=== PATIENT | female | born 1965 | race Caucasian/White ===

== ENCOUNTER 2017-01-10 12:50 | Outpatient (CLI) | payer MEDICARE, MEDICAID ==
[~2017-01-10 12:50] MED LIST: ALBUTEROL2.5 MG/NEB IN; ALLERCLEAR10 MG PO; AMITRIPTYLINE 225 MG PO; AMOXICILLIN 50500 MG PO; ASPIRIN LITE C325 MG PO; ASPRIN OR; ATORVASTATIN CA40 MG PO; B-12500 MCG PO; CHANTIX0.5 MG PO; CIPRO 500MG TA500 MG PO; DELSYM30 MG/5 ML PO; EVISTA60 MG PO; FENOFIBRATE160 MG PO; FISH OIL500 MG PO; FLAGYL500 M1 PO; FUROSEMIDE40 MG PO; GABAPENTIN300 MG PO; GLUCOPHAGE1000 MG PO; IRON TABLETS325 MG PO; K-DUR 2020 MEQ PO; LEADER IRON TAB65 MG PO; LEVETIRACETAM750 MG PO; LORTAB 5/500 501 TAB PO; LORTAB 500 MG-71 TAB PO; LOSARTAN POTASS50 MG PO; METOCLOPRAMIDE10 M2 PO; MUCINEX DM1 TER PO; NIACIN500 M3 PO; PERCOCET 5/3251 EACH PO; PLAVIX75 MG PO; POTASSIUM GLUC595 M1 PO; PREDNISONE 20MG20 MG PO; PRILOSEC20 M1 PO; PROAIR HFA0.09 MG/AC IH; PROMETHAZINE HC25 M1 PO; RIZATRIPTAN BENZ5 MG PO; SIMVASTATIN20 MG PO; TRAMADOL 50MG T50 M1 PO; ZOFRAN ODT8 MG PO
== END 2017-01-10 13:05 | disposition home or self-care (01) ==
LOC: COP 12:50
DX: C85.90 Non-Hodgkin lymphoma, unspecified, unspecified site (principal); Z45.2 Encounter for adjustment and management of vascular access device
CPT/HCPCS: J1642

== ENCOUNTER 2017-06-20 10:30 | Outpatient (CLI) | payer MEDICARE, MEDICAID ==
[~2017-06-20 10:30] MED LIST changes: +MECLIZINE HYD12.5 MG PO
== END 2017-06-20 10:58 | disposition home or self-care (01) ==
LOC: COP 10:30
DX: C85.83 Other specified types of non-Hodgkin lymphoma, intra-abdominal lymph nodes (principal); Z45.2 Encounter for adjustment and management of vascular access device
CPT/HCPCS: J1642

== ENCOUNTER 2017-08-17 10:55 | Outpatient (CLI) | payer MEDICARE, MEDICAID ==
[2017-08-17 11:10] VITALS: BP 114/82
== END 2017-08-17 11:30 | disposition home or self-care (01) ==
LOC: COP 10:55
DX: C85.83 Other specified types of non-Hodgkin lymphoma, intra-abdominal lymph nodes (principal); Z45.2 Encounter for adjustment and management of vascular access device
CPT/HCPCS: J1642

== ENCOUNTER 2017-09-15 12:45 | Outpatient (CLI) | payer MEDICARE, MEDICAID ==
[2017-09-15 12:55] VITALS: BP 98/69
== END 2017-09-15 13:20 | disposition home or self-care (01) ==
LOC: COP 12:45
DX: C85.83 Other specified types of non-Hodgkin lymphoma, intra-abdominal lymph nodes (principal); Z45.2 Encounter for adjustment and management of vascular access device
CPT/HCPCS: J1642

== ENCOUNTER 2017-10-13 10:45 | Outpatient (CLI) | payer MEDICARE, MEDICAID ==
[2017-10-13 11:00] VITALS: BP 126/78
== END 2017-10-13 11:12 | disposition home or self-care (01) ==
LOC: COP 10:45
DX: C85.83 Other specified types of non-Hodgkin lymphoma, intra-abdominal lymph nodes (principal); Z45.2 Encounter for adjustment and management of vascular access device
CPT/HCPCS: J1642

== ENCOUNTER 2017-11-10 10:55 | Outpatient (CLI) | payer MEDICARE, MEDICAID | END 2017-11-10 11:45 | disposition home or self-care (01) | LOC: COP 10:55 | DX: C85.83 Other specified types of non-Hodgkin lymphoma, intra-abdominal lymph nodes (principal); Z45.2 Encounter for adjustment and management of vascular access device | CPT/HCPCS: J1642 ==